=== PATIENT | male | born 1955 | race Caucasian/White ===

== ENCOUNTER → 2016-11-12 | Outpatient (CLI) | payer OTHER ==
[~2016-11-12] MED LIST: ASPIRIN 81M81 MG/TA2 PO; CARDI-OMEGA1000 MG PO; EPA FISH OIL1000 MG PO; FLUOXETINE; KLONOPIN 0.5MG0.5 MG PO; KLONOPIN 1MG1 MG PO; LAMICTAL 100MG100 MG PO; LEVAQUIN 5500 MG/TA1 PO; MULTIPLE VITAMI1 CAP PO; NORCO 325 MG-51 TAB PO; PRAVACHOL 20MG20 MG PO; PRAVACHOL 40MG40 MG PO; PRAVACHOL40 MG PO; PRIL40 PO; PRILOSEC 20MG20 MG PO; ST. JOSEPH81 M1 PO; TOPROL XL 25MG25 MG PO; VIIBRYD20 MG PO; WELLBUTRIN 75MG75 MG PO
== END ==
LOC: BHSO 07:54
DX: F31.81 Bipolar II disorder (principal)

== ENCOUNTER → 2016-12-26 | Outpatient (CLI) | payer OTHER | LOC: BHSO 11:00 | DX: F31.81 Bipolar II disorder (principal) ==

== ENCOUNTER → 2017-01-29 | Outpatient (CLI) | payer OTHER | LOC: BHSO 15:00 | DX: F31.73 Bipolar disorder, in partial remission, most recent episode manic (principal) ==

== ENCOUNTER → 2017-02-20 | Outpatient (CLI) | payer OTHER | LOC: BHSO 10:47 | DX: F31.81 Bipolar II disorder (principal) ==

== ENCOUNTER 2017-03-02 18:12 | Emergency (ER) | payer OTHER ==
[~2017-03-02] VITALS: Ht 175.3 cm; Wt 86.4 kg
[~2017-03-02 18:12] MED LIST changes: -LEVAQUIN 5500 MG/TA1 PO
[2017-03-02 18:17] VITALS: TEMP 98.5
[2017-03-02] MEDS ORDERED: LEVAQUIN 5500 MG/TA1 PO (19:55)
[2017-03-02 20:05] VITALS: BP 132/76; PULSE 96
== END 2017-03-02 20:06 | disposition home or self-care (01) ==
LOC: COL.ER 18:12
DX: S91.331A Puncture wound without foreign body, right foot, initial encounter (principal); K21.9 Gastro-esophageal reflux disease without esophagitis; F31.9 Bipolar disorder, unspecified; Z23 Encounter for immunization; Z87.891 Personal history of nicotine dependence; Z98.890 Other specified postprocedural states; W45.0XXA Nail entering through skin, initial encounter; Y92.008 Other place in unspecified non-institutional (private) residence as the place of occurrence of the external cause

== ENCOUNTER → 2017-04-10 | Outpatient (CLI) | payer OTHER ==
[~2017-04-10] MED LIST changes: +LEVAQUIN 5500 MG/TA1 PO
== END ==
LOC: BHSO 10:52
DX: F31.81 Bipolar II disorder (principal)

== ENCOUNTER → 2017-05-21 | Outpatient (CLI) | payer OTHER | LOC: BHSO 07:56 | DX: F31.81 Bipolar II disorder (principal) ==

== ENCOUNTER → 2017-05-22 | Outpatient (CLI) | payer OTHER | LOC: BHSO 11:00 | DX: F31.81 Bipolar II disorder (principal) ==

== ENCOUNTER → 2017-06-27 | Outpatient (CLI) | payer OTHER | LOC: BHSO 10:55 | DX: F31.81 Bipolar II disorder (principal) ==

== ENCOUNTER → 2017-08-08 | Outpatient (CLI) | payer OTHER | LOC: BHSO 10:59 | DX: F31.81 Bipolar II disorder (principal) ==

== ENCOUNTER → 2017-11-12 | Outpatient (CLI) | payer OTHER | LOC: BHSO 10:50 | DX: F31.81 Bipolar II disorder (principal) | CPT/HCPCS: G0463 ==

== ENCOUNTER → 2018-05-13 | Outpatient (CLI) | payer OTHER | LOC: BHSO 10:51 | DX: F31.81 Bipolar II disorder (principal) | CPT/HCPCS: G0463 ==

== ENCOUNTER → 2018-11-26 | Outpatient (CLI) | payer OTHER | LOC: BHSO 10:03 | DX: F31.81 Bipolar II disorder (principal) ==

== ENCOUNTER → 2019-05-24 | Outpatient (CLI) | payer OTHER | LOC: BHSO 09:15 | DX: F31.81 Bipolar II disorder (principal) | CPT/HCPCS: G0463 ==

== ENCOUNTER 2019-10-04 17:34 | Emergency (ER) | payer OTHER ==
[2019-10-04 18:05] VITALS: BP 128/72; PULSE 76; TEMP 97.6
== END 2019-10-04 18:05 | disposition home or self-care (01) ==
LOC: COL.ER 17:34
DX: S00.532A Contusion of oral cavity, initial encounter (principal); F31.9 Bipolar disorder, unspecified; Z87.891 Personal history of nicotine dependence; W22.8XXA Striking against or struck by other objects, initial encounter

== ENCOUNTER → 2019-11-17 | Outpatient (CLI) | payer OTHER | LOC: BHSO 09:50 | DX: F31.81 Bipolar II disorder (principal) | CPT/HCPCS: G0463 ==

== ENCOUNTER → 2020-05-24 | Outpatient (CLI) | payer OTHER ==
[~2020-05-24] MED LIST changes: +ALLEGRA 60MG TA60 MG PO; +DESYREL DIVIDO150 M1 PO; +DOXYCYCLINE 10100 MG PO; +PRINIVIL5 MG PO; +TYLENOL 8 HR PO
== END ==
LOC: BHSO 12:59
DX: F31.81 Bipolar II disorder (principal)
CPT/HCPCS: G0463

== ENCOUNTER 2021-02-23 11:01 | Day surgery (SDC) | payer OTHER ==
[~2021-02-23] VITALS: Ht 175.4 cm; Wt 86.3 kg
[2021-02-23] VITALS (9 sets, daily range): BP systolic 114–143; BP diastolic 71–93; PULSE 56–76; TEMP 97.7
[~2021-02-23 11:01] MED LIST changes: -MULTIPLE VITAMI1 CAP PO; +MULTIPLE VITAMI1 TA5 PO
[2021-02-23 11:47] LABS: HEMATOCRIT 40.3 % (42.0-52.0); HEMOGLOBIN 13.6 g/dl (13.5-18.0); MEAN CELL VOLUME 90 fl (80.0-100.0); MEAN CORPUSCULAR HEMOGLOBIN 30 pg (27.0-31.0); MEAN CORPUSCULAR HGB CONC 34 g/dl (33.0-37.0); MEAN PLATELET VOLUME 9.6 fl (7.4-10.4); PLATELET COUNT 263 K/mm3 (130-400); RED BLOOD COUNT 4.49 M/mm3 (4.20-5.60); REDCELL DISTRIBUTION WIDTH-CV 13.1 % (11.5-14.5)
[2021-02-23 11:52] LABS: PROTHROMBIN TIME 11.3 SECONDS (9.7-12.8)
[2021-02-23 11:53] LABS: CALCIUM 8.9 mg/dL (8.4-10.2); CREATININE, serum 0.8 (0.66-1.25); POTASSIUM 4.2 mmol/L (3.4-5.0)
--- NOTE | 2021-02-23 15:03 | NUR ---
SEE MERGE DOCUMENTATION FOR MEDICATION ADMINISTRATION TIMES AND INTRA/POST PROCEDURE SEDATION ASSESSMENTS.
--- NOTE | 2021-02-23 16:00 | NUR ---
Report from Hipolito LYN. Transferred from skilled laborer by bed. Dressing to left upper chest CD&I and ice pack applied. VSS. bedside
[2021-02-23] MEDS ORDERED: CEPHALEXIN500 M1 PO (16:34)
--- NOTE | 2021-02-23 17:50 | NUR ---
INT discontinued intact. Discharge instructions given.
--- NOTE | 2021-02-23 18:00 | NUR ---
Transferred to private car by kaci
== END 2021-02-23 18:00 | disposition home or self-care (01) ==
LOC: COL.CAR 11:01
PROVIDERS: Internal Medicine Interventional Cardiology
DX: Z45.02 Encounter for adjustment and management of automatic implantable cardiac defibrillator (principal); I49.8 Other specified cardiac arrhythmias; E78.5 Hyperlipidemia, unspecified; I10 Essential (primary) hypertension; K21.9 Gastro-esophageal reflux disease without esophagitis; F31.9 Bipolar disorder, unspecified; Z20.822 Contact with and (suspected) exposure to COVID-19
CPT/HCPCS: C1722; J0690; J2250; J3010; J7030

== ENCOUNTER 2021-05-06 13:18 | Emergency (ER) | payer OTHER ==
[~2021-05-06] VITALS: Ht 175.3 cm; Wt 86.4 kg
[~2021-05-06 13:18] MED LIST changes: +CEPHALEXIN500 M1 PO
[2021-05-06 13:22] VITALS: BP 113/77; PULSE 93; TEMP 98
[2021-05-06 14:16] LABS: COLLECTION METHOD CLEAN CATCH
[2021-05-06 14:25] LABS: PH 5 (5-8); SQUAMOUS EPITHELIAL None Seen /hpf; URINE APPEARANCE Clear; URINE BACTERIA None Seen /hpf; URINE BILIRUBIN Negative (NEGATIVE); URINE BLOOD Negative (NEGATIVE); URINE COLOR Yellow; URINE GLUCOSE Negative (NEGATIVE); URINE KETONE Negative (NEGATIVE); URINE LEUKOCYTE ESTERASE Negative (NEGATIVE); URINE NITRATE Negative (NEGATIVE); URINE PROTEIN(semi-quant) Negative (NEGATIVE); URINE RBC 0-2 /hpf; URINE UROBILINOGEN Negative (NEGATIVE); URINE WBC 0-2 /hpf
== END 2021-05-06 14:56 | disposition home or self-care (01) ==
LOC: COL.ER 13:18
PROVIDERS: Nurse Practitioner Primary Care
DX: M54.5 Low back pain (principal); F31.81 Bipolar II disorder; Z79.899 Other long term (current) drug therapy
CPT/HCPCS: J1885; J3360

== ENCOUNTER 2021-06-22 11:00 | Outpatient (RCR) | payer OTHER | END 2021-07-24 13:48 | disposition home or self-care (01) | LOC: PT.GENESIS 11:00 | DX: M99.03 Segmental and somatic dysfunction of lumbar region (principal); M99.06 Segmental and somatic dysfunction of lower extremity; M99.05 Segmental and somatic dysfunction of pelvic region ==

== ENCOUNTER → 2023-11-27 | Outpatient (CLI) | payer MEDICARE, OTHER | LOC: COL.RAD 11:45 | DX: K76.0 Fatty (change of) liver, not elsewhere classified (principal) ==

== ENCOUNTER 2024-01-09 07:18 | Day surgery (SDC) | payer MEDICARE, OTHER ==
[~2024-01-09] VITALS: Ht 175.3 cm; Wt 91.1 kg
[~2024-01-09 07:18] MED LIST changes: +LR 1,000 ML IV SCH; +Ondansetron 4 MG/2 ML VIAL IV PRN
[2024-01-09] MEDS ORDERED: Lidocaine PF 2% (20 MG/ML) 5 ML VIAL ONE (08:51)
[2024-01-09] MEDS ORDERED: BUSPAR10 MG PO (09:45)
[2024-01-09] MEDS ORDERED: CRESTOR5 MG PO (09:47)
[2024-01-09] MEDS ORDERED: KLONOPIN 1MG1 MG PO (09:48)
[2024-01-09] MEDS ORDERED: TOPROL XL 25MG25 MG PO (09:50)
[2024-01-09] MEDS ORDERED: BENTYL 20MG20 MG/TAB PO (09:51)
[2024-01-09] MEDS ORDERED: MELATONIN5 M1 SL (09:53)
[2024-01-09] MEDS ORDERED: MULTI VITAMINS1 TAB PO (09:53)
[2024-01-09] MEDS ORDERED: ALLEGRA 180MG180 MG PO (09:54)
[2024-01-09 10:01] VITALS: BP 123/73; PULSE 71; TEMP 97.3
--- NOTE | 2024-01-09 10:50 | NUR ---
0940 RETURNS TO ROOM 8 PER CART, AWAKE, ALERT. RESP UNLABORED AMBULATES TO RECLINER WITH STANDBY ASSIST. DENIES NAUSEA, ABD/CHEST PAIN OR DYSPHAGIA. VITAL SIGNS OBTAINED. CALL LIGHT AT SIDE. IN ROOM 0950 DISCHARGE INSTRUCTIONS REVIEWED. PATIENT VERBALIZES UNDERSTANDING. COPY PROVIDED IN DISCHARGE FOLDER 1005 TOLERATES PO WATER AND COFFEE WITHOUT NAUSEA. SWALLOWS WITHOUT DIFFICULTY 1020 AWAKE, ALERT. WAITS FOR 1025 DR AMAYA HERE TO VISIT WITH PATIENT 1042 DRESSES SELF
== END 2024-01-09 10:50 | disposition home or self-care (01) ==
LOC: SDCO 07:18
DX: K31.7 Polyp of stomach and duodenum (principal); K29.81 Duodenitis with bleeding; K31.89 Other diseases of stomach and duodenum; K62.89 Other specified diseases of anus and rectum; K21.9 Gastro-esophageal reflux disease without esophagitis; R19.7 Diarrhea, unspecified; R19.4 Change in bowel habit; K76.0 Fatty (change of) liver, not elsewhere classified; Z79.899 Other long term (current) drug therapy
CPT/HCPCS: J2704; J7120